=== PATIENT | female | born 1970 | race Caucasian/White ===

== ENCOUNTER 2023-07-30 20:14 | Emergency (ER) | payer OTHER, SELFPAY ==
[2023-07-30 20:17] VITALS: PULSE 88; TEMP 36.4; O2SAT 96; BMI 47.6
[2023-07-30 20:23] VITALS: BP 150/90
--- NOTE | 2023-07-30 20:29 | ED.FALL1 ---
HPI HPI - Fall General Chief Complaint: Extremity Injury, Upper Stated Complaint: FALL Upper Injury Time Seen by Provider: 07/30/23 20:23 Source: patient Mode of arrival: walk-in Limitations: no limitations History of Present Illness HPI Narrative: This 52-year-old female who is right-hand dominant presents for evaluation of a right distal forearm injury. She has pain at the distal radius that radiates up the arm toward the elbow. 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 She states her right hand was outstretched and she fell onto the arm and it twisted underneath her body. She states she did strike her head when she landed on the carpeted floor but has no loss of consciousness. She has no neck or back pain. She states she sat on the floor for a period of time deciding whether or not she needed to come to the emergency department. Ultimately her decided to bring her to the ER. No medications were taken prior to arrival and she declines need for any pain medication at this time. She has some mild pain radiating from the distal radius into her hand but no santos hand pain. Her took off her rings thinking that her hand was going to swell. No additional injuries or complaints. Related Data Home Medications ?Medication ?Instructions ?Recorded ?Confirmed No Known Home Medications 07/30/23 07/30/23 Allergies Allergy/AdvReac Type Severity Reaction Status Date / Time No Known Drug Allergies Allergy Verified 07/30/23 20:20 Opioid HPI Opioid Management Most Recent Pain and Opioid Data: No Data to Display Review of Systems ROS Status of ROS 10 or more systems reviewed and unremarkable except as noted in history and below Exam Narrative Exam Narrative: Vital signs and Nursing Notes reviewed: Blood pressure is elevated at 150/90, she is not hypoxic with pulse ox of 96% on room air General: Overweight female resting comfortably on the stretcher with her right hand on her lap with an bag of ice. No respiratory distress HEENT: Normocephalic atraumatic Neck: Supple, no midline bony vertebral tenderness or step-off Chest: Lungs are clear to auscultation with good air entry, there is no wheezing rhonchi or rales appreciated no accessory muscle use, patient is speaking in complete sentences-no chest wall tenderness to palpation CVS: Regular rate and rhythm S1-S2, no murmurs rubs or gallops, pulses are brisk and equal bilaterally Extremities: There is tenderness and mild swelling to the right distal radius. No bony deformity noted. Patient is able to move all of her fingers. Radial pulses brisk and capillary refill in the hand is normal. There is mild tenderness along the distribution of the radius and the forearm with no notable deformity. There is no elbow or shoulder tenderness Skin: Normal in appearance without rash,pallor, petechiae or purpura Neuro: No focal deficits Constitutional Vital Signs, click to edit/add: Last Vital Signs Temp 97.6 F 07/30/23 20:17 Pulse 88 07/30/23 20:17 Resp 16 07/30/23 20:17 BP 150/90 H 07/30/23 20:23 Pulse Ox 96 07/30/23 20:17 O2 Del Method Room Air 07/30/23 20:17 Course Vital Signs Vital signs: Vital Signs Temperature 97.6 F 07/30/23 20:17 Pulse Rate 88 07/30/23 20:17 Respiratory Rate 16 07/30/23 20:17 Pulse Oximetry 96 07/30/23 20:17 Oxygen Delivery Method Room Air 07/30/23 20:17 Temperature 97.6 F 07/30/23 20:17 Pulse Rate 88 07/30/23 20:17 Respiratory Rate 16 07/30/23 20:17 Blood Pressure 150/90 H 07/30/23 20:23 Pulse Oximetry 96 07/30/23 20:17 Oxygen Delivery Method Room Air 07/30/23 20:17 MDM - Fall MDM Narrative Medical decision making narrative: This 52-year-old female who is right-hand dominant presents for evaluation of a right distal forearm injury after she fell out of an office chair onto the floor approximately 3 feet. She broke her fall by putting her hand out. She states that her hand did get twisted up underneath her. She has some tenderness at the distal radius. She is neurologically intact. There is no snuffbox tenderness but she did complain of pain in the snuffbox during the x-rays when she had to raise her thumb up. I reviewed the x-rays myself. I do not see any sign of any fracture or dislocation. I explained to her that in light of the snuffbox tenderness and the fall on an outstretched hand she will need to be immobilized and follow-up with outpatient orthopedics. She was placed in an Víctor wrap and a thumb spica splint was placed over the extremity to immobilize it. She declined the need for any pain medication. Discharge Plan Discharge Stand Alone Forms: Portal Instructions Chief Complaint: Extremity Injury, Upper Clinical Impression: Sprain and strain of wrist Patient Disposition: Home, Self-Care Time of Disposition Decision: 21:16 Condition: Good Prescriptions / Home Meds: No Action No Known Home Medications Print Language: Frisian Instructions: Wrist Injury (ED), How to Use an Elastic Bandage (ED), Wrist Sprain (ED) Referrals: Physician,Non-Staff, [Physician] - 1 week Edison Chow MD [Physician] - 1 week Procedures ED Procedure Instructions Procedures Procedures: Sprain care without manipulation; the right wrist and distal forearm was wrapped in an Víctor wrap and a Velcro thumb spica splint was applied over the extremity
--- NOTE | 2023-07-30 20:34 | XR_ITS ---
The [address] [address] Patient Name: SARKIS CONTEH MRN: [id number] date: 1970 Sex: F Assigned Patient Location: ER Current Patient Location: Accession/Order Number: [id number] Exam Date: 07/30/2023 20:42 Report Date: 07/30/2023 21:36 At the request of: CA BONDS Procedure: XR wrist RT 2V XR wrist RT 2V, 07/30/2023 7:42 PM CDT: History: fall on outstretched hand. . Comparison: None. Technique: 2 views right wrist Findings/Impression: There is a tiny avulsion fracture fragment arising from the tip of the ulnar styloid. This is age indeterminate. The other bones of the right wrist are intact and in normal alignment. The soft tissues demonstrate no acute abnormality. Electronically authenticated by: ELA GANN Date: 07/30/2023 21:36
--- NOTE | 2023-07-30 20:35 | XR_ITS ---
The [address] [address] Patient Name: SARKIS CONTEH MRN: [id number] date: 1970 Sex: F Assigned Patient Location: ER Current Patient Location: ED.MAIN Accession/Order Number: [id number] Exam Date: 07/30/2023 20:42 Report Date: 07/30/2023 21:34 At the request of: CA BONDS Procedure: XR forearm RT 2V XR forearm RT 2V, 07/30/2023 7:42 PM CDT: History: fall on outstretched hand. . Comparison: None. Technique: 2 views right forearm Findings/Impression: There is no fracture or malalignment. The soft tissues demonstrate no acute abnormality. Electronically authenticated by: ELA GANN Date: 07/30/2023 21:34
== END 2023-07-30 21:45 | disposition home or self-care (01) ==
PROVIDERS: Emergency Provider Emergency Medicine; Family Provider Family Medicine; PCP Internal Medicine
DX: S63.501A Unspecified sprain of right wrist, initial encounter (principal); S66.911A Strain of unspecified muscle, fascia and tendon at wrist and hand level, right hand, initial encounter; W07.XXXA Fall from chair, initial encounter
CPT/HCPCS: 73090; 73100; 99283